=== PATIENT | female | born 1945 | race Caucasian/White ===

== ENCOUNTER → 2017-02-11 | Outpatient (CLI) | payer OTHER, MEDICARE | LOC: FIMAGING 09:21 | PROVIDERS: ATTEND Internal Medicine | DX: Z12.31 Encounter for screening mammogram for malignant neoplasm of breast (principal) | CPT/HCPCS: G0202 ==

== ENCOUNTER → 2017-04-23 | Outpatient (CLI) | payer OTHER, MEDICARE | LOC: FIMAGING 08:47 | PROVIDERS: ATTEND Internal Medicine | DX: Z13.820 Encounter for screening for osteoporosis (principal); M85.80 Other specified disorders of bone density and structure, unspecified site ==

== ENCOUNTER → 2017-11-11 | Outpatient (CLI) | payer OTHER, MEDICARE | LOC: FIMAGING 09:29 | PROVIDERS: ATTEND Internal Medicine | DX: G44.009 Cluster headache syndrome, unspecified, not intractable (principal) ==

== ENCOUNTER 2017-11-24 20:38 | Inpatient (IN) | payer OTHER, MEDICARE ==
--- NOTE | 2017-11-24 21:07 | CPEKG ---
Heart Rate: 94 RR Interval: 638 P-R Interval: 160 QRSD Interval: 92 QT Interval: 364 QTC Interval: 456 P [place]: 39 QRS [place]: 17 T Wave [place]: 39 EKG Severity - BORDERLINE ECG - EKG Impression: SINUS RHYTHM EKG Impression: BORDERLINE INFERIOR Q WAVES Electronically Signed By: Robbie De Guzman 24-Nov-2017 23:44:44
[2017-11-24] MEDS ORDERED: LORazepam 2 MG/ML INJ IVP ONE (21:13)
[2017-11-24] MEDS ORDERED: NS 500 ML IV ONE (21:13)
--- NOTE | 2017-11-24 21:13 | EDPHY ---
General - History Smoking Status: Former smoker Time Seen by Provider: 11/24/17 21:04 Narrative: CHIEF COMPLAINT: High blood pressure, dizziness HISTORY OF PRESENT ILLNESS: Patient presents with complaints of high blood pressure and feeling dizzy. Symptoms started earlier today. She noted blood pressures in the 180s systolic. She had no headache that she did feel dizzy and lightheaded. No chest pain. No shortness of breath. No neck pain, fever or stiffness. No chills. No cough, shortness of breath or wheezing. She has not been ill recently. She describes this as feeling "not right." The dizziness is primarily chronic. She has no unilateral complaints. No facial droop or slurred speech per spouse. No difficulty ambulating. She does report that she typically drinks alcohol daily but has not had any since yesterday. No other associated complaints or modifying factors REVIEW OF SYSTEMS: Ten systems reviewed and are negative unless otherwise noted in the HPI PCP: Dr. Garrett SPECIALISTS: None PAST MEDICAL HISTORY: Alcoholism, hypertension, chronic dizziness, colon cancer PAST SURGICAL HISTORY: Partial colectomy with reanastomosis SOCIAL HISTORY: Nonsmoker. Daily ingestion of 5-7 glasses of wine. Lives independently with her spouse FAMILY HISTORY: Noncontributory EXAMINATION General Appearance: Alert, no distress. Well-developed well-nourished. Head: normocephalic, atraumatic Eyes: Pupils equal and round, no conjunctival pallor or injection ENT, Mouth: Mucous membranes dry. Airway is widely patent Neck: Normal inspection, supple, non-tender Respiratory: Lungs are clear to auscultation. No wheezing rhonchi or crackles Cardiovascular: Regular rate and rhythm. No murmur Gastrointestinal: Abdomen is soft and nontender Back: non-tender, no bony abnormalities Neurological: GCS 15.A&O, nonfocal, normal gait. Mild resting tremor. No pronator drift. Normal zpilcm-[id number]. Normal steady gait with no ataxia Skin: Warm and dry, no rash no petechiae or purpura Extremities: Nontender, no pedal edema Psychiatric: Mood and affect normal DIFFERENTIAL DIAGNOSES: Including but not limited to alcohol withdrawal, delirium tremens, dehydration, hypertensive urgency, hypertensive emergency MDM: 9:13 p.m. Hypertension without evidence of stroke, TIA or hypertensive emergency. No headache. Her vital signs are otherwise stable. Suspect that there is a component of alcohol withdrawal or dehydration as she has had no alcohol today. She does report frequent intake of alcohol. I do not appreciate any evidence of delirium tremens or encephalopathy at this time. I will discuss with Dr. De Guzman 10:20 p.m. Patient re-evaluated. She is feeling significantly better with her IV Ativan and IV fluid. Her vital signs have normalized. She does have an anion gap of 20, suggesting alcoholic ketoacidosis. In addition she does have hypomagnesemia 1.2. Her vital signs are within normal limits otherwise. She does not exhibit any evidence of delirium tremens or encephalopathy. But I do feel she warrants admission the hospital for further resuscitation, Care repletion. The patient is agreeable with this as is her spouse at bedside. 10:25 p.m. Case discussed with hospitalist Dr. [place]. He will admit the patient to his service. Admitted stable condition. SUPERVISION: Patient was evaluated and examined in conjunction with my secondary supervising physician as documented. We have both examined the patient. (Frank Turner) - Objective Vital Signs: Initial Vital Signs Temperature (C) 36.8 C 11/24/17 20:39 Heart Rate 109 H 11/24/17 20:39 Respiratory Rate 18 11/24/17 20:39 Blood Pressure 197/102 H 11/24/17 20:39 O2 Sat (%) 96 11/24/17 20:39 O2 Delivery Mode Room Air Allergies/Adverse Reactions: No Known Allergies Allergy (Unverified 04/08/13 08:47) Home Medications: Medication Instructions Recorded Benazepril/Hydrochlorothiazide 1 each PO DAILY 04/08/13 [Benazepril-Hctz 20-25 mg Tab] Cholecalciferol Vit D3 [Vitamin D3 1,000 units PO DAILY 04/08/13 (*)] Aspirin [Aspirin 81mg (*)] 81 mg PO DAILY 07/27/13 Multivitamins [Multivitamin (*)] 1 each PO DAILY 11/25/17 Liberty-3 Fatty Acids [Fish Oil 1000 1,000 mg PO DAILY 11/25/17 mg (*)] amLODIPine BESYLATE [Norvasc 5 mg 5 mg PO DAILY 11/25/17 (*)] Acetaminophen [Tylenol 325mg (*)] 650 mg PO Q4HRS PRN tab 11/26/17 amLODIPine BESYLATE [Norvasc 2.5 2.5 mg PO DAILY #15 tab 11/26/17 mg (*)] Laboratory Results: Laboratory Results 11/24/17 21:18 11/24/17 21:18 Medications Given: Discontinued Medications Acetaminophen (Tylenol) 650 mg PO Q4HRS PRN PRN Reason: Pain, Mild/Fever, Can Take PO Stop: 05/23/18 23:20 Last Admin: 11/26/17 08:06 Dose: 650 mg Amlodipine Besylate (Norvasc) 5 mg PO DAILY LUNA Stop: 05/24/18 08:59 Last Admin: 11/25/17 09:24 Dose: 5 mg Amlodipine Besylate (Norvasc) 5 mg PO ONCE ONE Stop: 11/25/17 12:01 Last Admin: 11/25/17 12:17 Dose: Not Given Amlodipine Besylate (Norvasc) 2.5 mg PO ONCE ONE Stop: 11/25/17 12:31 Last Admin: 11/25/17 13:08 Dose: 2.5 mg Amlodipine Besylate (Norvasc) 7.5 mg PO DAILY LUNA Stop: 05/24/18 08:59 Last Admin: 11/26/17 08:08 Dose: 7.5 mg Aspirin (Aspirin) 81 mg PO DAILY LUNA Stop: 05/24/18 08:59 Last Admin: 11/26/17 08:08 Dose: 81 mg Benazepril HCl (Lotensin) 20 mg PO DAILY LUNA Stop: 05/24/18 08:59 Last Admin: 11/26/17 08:07 Dose: 20 mg Cholecalciferol (Vitamin D) 1,000 units PO DAILY LUNA Stop: 05/24/18 08:59 Last Admin: 11/26/17 08:09 Dose: 1,000 units Enoxaparin Sodium (Lovenox) 40 mg SC DAILY LUNA Stop: 05/24/18 08:59 Last Admin: 11/26/17 08:09 Dose: 40 mg Folic Acid (Folic Acid) 1 mg PO DAILY LUNA Stop: 05/24/18 08:59 Last Admin: 11/26/17 08:08 Dose: 1 mg Gabapentin (Neurontin) 100 mg PO TID LUNA Stop: 05/24/18 15:59 Last Admin: 11/26/17 08:08 Dose: 100 mg Hydrochlorothiazide (Hydrochlorothiazide) 25 mg PO DAILY LUNA Stop: 05/24/18 08:59 Last Admin: 11/26/17 08:09 Dose: 25 mg Sodium Chloride (Ns) 500 mls @ 1,000 mls/hr IV EDNOW ONE PRN Reason: Protocol Stop: 11/24/17 21:42 Last Admin: 11/24/17 21:27 Dose: 500 mls Magnesium Sulfate (Magnesium Sulf 2 Gm (Premix)) 50 mls @ 50 mls/hr IV EDNOW ONE Stop: 11/24/17 23:19 Last Admin: 11/24/17 23:07 Dose: 50 mls Potassium Chloride/Sodium Chloride (Ns W/ 20 Kcl/L) 1,000 mls @ 100 mls/hr IV CONT LUNA Stop: 05/23/18 23:29 Last Admin: 11/24/17 23:59 Dose: 1,000 mls Lorazepam (Ativan Injection) 0.5 mg IVP EDNOW ONE Stop: 11/24/17 21:14 Last Admin: 11/24/17 21:27 Dose: 0.5 mg Multivitamins (Tab-A-Singh) 1 each PO DAILY LUNA Stop: 05/24/18 08:59 Last Admin: 11/26/17 08:07 Dose: 1 each Lhmza-5-Untg Ethyl Esters (Fish Oil) 1,000 mg PO DAILY LUNA Stop: 05/24/18 08:59 Last Admin: 11/26/17 08:07 Dose: 1,000 mg Potassium Chloride (Klor-Con) 10 - 40 meq PO ONCE ONE PRN Reason: Protocol Stop: 11/25/17 08:52 Last Admin: 11/25/17 09:23 Dose: 30 meq Potassium Chloride (Klor-Con) 10 - 40 meq PO ONCE ONE PRN Reason: Protocol Stop: 11/25/17 20:15 Last Admin: 11/25/17 21:11 Dose: 10 meq Potassium Chloride (Klor-Con) 10 - 40 meq PO ONCE ONE PRN Reason: Protocol Stop: 11/26/17 08:01 Last Admin: 11/26/17 08:06 Dose: 10 meq Departure - Departure Disposition: [facility] Acute Clinical Impression: Alcoholic ketoacidosis, Hypomagnesemia Alcohol dependence Qualifiers: Substance use status: uncomplicated Qualified Code(s): F10.20 - Alcohol dependence, uncomplicated Condition: Good
[2017-11-24] MEDS ORDERED: LORazepam 2 MG/ML INJ IVP PRN ×2 (21:28→23:23)
[2017-11-24] MEDS ORDERED: LORazepam 1 MG TAB PO PRN (21:28)
[2017-11-24 21:42] LABS: PLATELET COUNT 203 10^3/uL (150-400)
[2017-11-24 21:55] LABS: PROTIME(PATIENT) 13.4 SEC (12.0-15.0)
[2017-11-24] MEDS ORDERED: MAGNESIUM SULF 2 GM/WATER 50 ML IV ONE (22:20)
[2017-11-24] MEDS ORDERED: ONDANSETRON 4 MG/2 ML VIAL IVP PRN (23:21)
[2017-11-24] MEDS ORDERED: ONDANSETRON DISINTEGRATING 4 MG TAB PO PRN (23:21)
[2017-11-24] MEDS ORDERED: ACETAMINOPHEN 325 MG TAB PO PRN (23:21)
[2017-11-24] MEDS ORDERED: FLUMAZENIL 0.5 MG/5 ML MDV IVP PRN (23:23)
[2017-11-24] MEDS ORDERED: NS W/ 20 KCl/L 1,000 ML IV SCH (23:30)
--- NOTE | 2017-11-25 03:21 | PDGENHP ---
History and Physical - Chief Complaint High blood pressure - History of Present Illness 72 yo F w/ hx of HTN presents with malaise and high blood pressure. Patient noted high BP at home and called PCP, who advised her to come to the ED. In addition, she states she has been feeling "off" for a couple of days. She has been compliant w/ her home benazepril and HCTZ for HTN. She admits to issues with excessive ETOH intake for many years. She usually drinks 6-7 glasses of white wine daily, with her last drink being 2 days ago. History Information - Allergies/Home Medication List Allergies/Adverse Reactions: No Known Allergies Allergy (Unverified 04/08/13 08:47) Home Medications: Benazepril/Hydrochlorothiazide [Benazepril-Hctz 20-25 mg Tab] 1 each PO DAILY [Last Taken 07/26/13] Cholecalciferol Vit D3 [Vitamin D3 1000 units (OTC)] 1,000 units PO DAILY [Last Taken 07/26/13] Multivitamins [Tab-A-Singh] 1 each PO DAILY 04/08/13 [Last Taken 07/26/13] Rosuvastatin Calcium [Crestor 40mg (RX)] 40 mg PO DAILY 04/08/13 [Last Taken 01/01] Ubidecarenone [Coenzyme Q10] 100 mg PO DAILY 04/08/13 [Last Taken 07/26/13] Aspirin [Aspirin 81mg (OTC)] 81 mg PO DAILY 07/27/13 [Last Taken 07/21/13] Docusate Sodium [Colace 100 MG (OTC)] 100 mg PO BID PRN 07/27/13 [Last Taken 01/01] Herbals/Supplements -Info Only 1 each PO AD 07/27/13 [Last Taken 07/26/13] I have personally reviewed and updated: family history, medical history - Past Medical History cancer, hypertension - Surgical History Additional surgical history: Colectomy w/ ostomy and subsequent takedown - Family History Positive for: stroke Additional family history: Parkinson's - Social History Smoking Status: Former smoker Review of Systems Review of Systems: ROS: 10pt was reviewed & negative except for what was stated in HPI & below Physical Exam Physical Exam: Temp Pulse Resp BP Pulse Ox 36.8 C 81 18 142/93 H 95 11/24/17 20:39 11/24/17 23:00 11/24/17 23:00 11/25/17 00:53 11/24/17 23:00 Constitutional: no apparent distress, not in pain Eyes: PERRL, EOMI Ears, Nose, Mouth, Throat: moist mucous membranes, no oral mucosal ulcers Cardiovascular: regular rate and rhythym, systolic murmur Respiratory: no respiratory distress, clear to auscultation Gastrointestinal: normoactive bowel sounds Skin: warm, normal color Musculoskeletal: full muscle strength, no muscle tenderness Neurologic: AAOx3, CN II-XII Intact, other (+noemy fasciculations) Psychiatric: interacting appropriately, not anxious Lab Data & Imaging Review 11/24/17 21:18 11/24/17 21:18 WBC 6.22 10^3/uL (3.80-9.50) 11/24/17 21:18 RBC 4.37 10^6/uL (4.18-5.33) 11/24/17 21:18 Hgb 13.9 g/dL (12.6-16.3) 11/24/17 21:18 POC Hgb 14.6 gm/dL (12.6-16.3) 11/24/17 21:24 Hct 39.8 % (38.0-47.0) 11/24/17 21:18 POC Hct 43 % (38-47) 11/24/17 21:24 MCV 91.1 fL (81.5-99.8) 11/24/17 21:18 MCH 31.8 pg (27.9-34.1) 11/24/17 21:18 MCHC 34.9 g/dL (32.4-36.7) 11/24/17 21:18 RDW 13.0 % (11.5-15.2) 11/24/17 21:18 Plt Count 203 10^3/uL (150-400) 11/24/17 21:18 MPV 9.0 fL (8.7-11.7) 11/24/17 21:18 Neut % (Auto) 69.7 % (39.3-74.2) 11/24/17 21:18 Lymph % (Auto) 19.9 % (15.0-45.0) 11/24/17 21:18 Henry % (Auto) 9.6 % (4.5-13.0) 11/24/17 21:18 Eos % (Auto) 0.3 % (0.6-7.6) L 11/24/17 21:18 Baso % (Auto) 0.2 % (0.3-1.7) L 11/24/17 21:18 Nucleat RBC Rel Count 0.0 % (0.0-0.2) 11/24/17 21:18 Absolute Neuts (auto) 4.33 10^3/uL (1.70-6.50) 11/24/17 21: Absolute Lymphs (auto) 1.24 10^3/uL (1.00-3.00) 11/24/17 21: Absolute Monos (auto) 0.60 10^3/uL (0.30-0.80) 11/24/17 21:18 Absolute Eos (auto) 0.02 10^3/uL (0.03-0.40) L 11/24/17 21:18 Absolute Basos (auto) 0.01 10^3/uL (0.02-0.10) L 11/24/17 21:18 Absolute Nucleated RBC 0.00 10^3/uL (0-0.01) 11/24/17 21: Immature Gran % 0.3 % (0.0-1.1) 11/24/17 21: Immature Gran # 0.02 10^3/uL (0.00-0.10) 11/24/17 21:18 PT 13.4 SEC (12.0-15.0) 11/24/17 21:18 INR 1.00 (0.83-1.16) 11/24/17 21:18 APTT 25.8 SEC (23.0-38.0) 11/24/17 21:18 POC Sodium 136 mEq/L (135-145) 11/24/17 21:24 Sodium 134 mEq/L (135-145) L 11/24/17 21:18 POC Potassium 3.4 mEq/L (3.3-5.0) 11/24/17 21:24 Potassium 3.8 mEq/L (3.5-5.2) 11/24/17 21:18 POC Chloride 91 mEq/L (97-110) L 11/24/17 21:24 Chloride 93 mEq/L (97-110) L 11/24/17 21:18 Carbon Dioxide 21 mEq/l (22-31) L 11/24/17 21:18 Anion Gap 20 mEq/L (8-16) H 11/24/17 21:18 POC BUN 17 mg/dL (7-23) 11/24/17 21:24 BUN 9 mg/dL (7-23) 11/24/17 21:18 Creatinine 0.6 mg/dL (0.6-1.0) 11/24/17 21:18 POC Creatinine 0.5 mg/dL (0.6-1.0) L 11/24/17 21:24 Estimated GFR > 60 11/24/17 21:18 Glucose 130 mg/dL (70-100) H 11/24/17 21:18 POC Glucose 137 mg/dL (70-100) H 11/24/17 21:24 Calcium 9.4 mg/dL (8.5-10.4) 11/24/17 21:18 Magnesium 1.2 mg/dL (1.6-2.3) L 11/24/17 21:18 Total Bilirubin 1.4 mg/dL (0.1-1.4) 11/24/17 21:18 Conjugated Bilirubin 0.5 mg/dL (0.0-0.5) 11/24/17 21:18 Unconjugated Bilirubin 0.9 mg/dL (0.0-1.1) 11/24/17 21:18 AST 23 IU/L (14-46) 11/24/17 21:18 ALT 29 IU/L (9-52) 11/24/17 21:18 Alkaline Phosphatase 60 IU/L (38-126) 11/24/17 21:18 Troponin I < 0.012 ng/mL (0.000-0.034) 11/24/17 21:18 Total Protein 7.2 g/dL (6.3-8.2) 11/24/17 21:18 Albumin 4.4 g/dL (3.5-5.0) 11/24/17 21:18 Lipase 125 IU/L (23-300) 11/24/17 21:18 Ethyl Alcohol < 10 mg/dL (0-10) 11/24/17 21:18 Assessment & Plan Assessment: 72 yo F w/ HTN presents with uncontrolled HTN and malaise from likely alcoholic ketoacidosis and mild ETOH w/d. Plan: 1. Uncontrolled HTN - I suspect her BP was elevated due to mild ETOH w/d with possible contribution from dehydration. Her BP improved in the ED with only fluids and a small dose of Ativan. - Admit for observation - Continue home BP medications 2. ETOH abuse w/ possible withdrawal - Patient admits to drinking 6-7 glasses of white wine daily. Her last drink was 2 days prior to admission. - [facility] protocol - Thiamine, MVI, folate 3. AGMA - I suspect alcoholic ketoacidosis with possible contribution from dehydration. - Fluid resuscitation - Recheck BMP in AM 4. Hypokalemia, hypomagnesemia - Most likely a reflection of significant ETOH abuse. - Replete and recheck in AM 5. Hx of colon CA - S/p colectomy w/ ostomy and subsequent takedown. Diet - Regular Code - Full Ppx - LMWH Dispo - Admit under observation status
[2017-11-25 05:53] LABS: PLATELET COUNT 165 10^3/uL (150-400)
[2017-11-25] MEDS ORDERED: PROTOCOL POTASSIUM 1 DOSE MISC PRN (08:01)
[2017-11-25] MEDS ORDERED: POTASSIUM CL 10 MEQ TAB PO ONE ×2 (08:51→20:14)
[2017-11-25] MEDS ORDERED: NON-FORMULARY NEW DRUG (Benazepril/Hydrochlorothiazide [Benazepril-Hctz 20-25 Mg Tab] 1 EA PO SCH (09:00)
[2017-11-25] MEDS ORDERED: amLODIPine BESYLATE 5 MG TAB PO SCH (09:00)
[2017-11-25] MEDS ORDERED: MULTIVITAMINS 1 EACH TAB PO SCH (09:00)
[2017-11-25] MEDS: ENOXAPARIN 40 MG/0.4 ML SYR SC SCH (09:23)
[2017-11-25] MEDS: OMEGA-3 FATTY ACIDS 1,000 MG CAP PO SCH (09:24)
[2017-11-25] MEDS: BENAZEPRIL HCL 20 MG TAB PO SCH (09:24)
[2017-11-25] MEDS: HYDROCHLOROTHIAZIDE 25 MG TAB PO SCH (09:24)
[2017-11-25] MEDS: FOLIC ACID 1 MG TAB PO SCH (09:24)
[2017-11-25] MEDS: CHOLECALCIFEROL VIT D3 1,000 UNITS TAB PO SCH (09:24)
[2017-11-25] MEDS: ASPIRIN 81 MG CHEWABLE TAB PO SCH (09:24)
[2017-11-25] MEDS: MULTIVITAMINS 1 EACH TAB PO SCH (09:25)
--- NOTE | 2017-11-25 11:13 | HOSPPROG ---
Hospitalist Progress Note Assessment/Plan: Norma Kathleen is a 72 y/o female with hypertension who called her PCP because she had been feeling off for several days. She has been compliant with her blood pressure medications, but noted her bp was high at home. She admits to excessive alcohol use/ upto 6-7 glasses of white wine a day. *Uncontrolled HTN -blood pressure remains elevated -increase Norvasc dose -suspect this may be from alcohol withdrawal *alcohol use and concern for withdrawal -on [facility] protocol -has gone to in the past -very motivated to return to to get other support *stressors -recently loss a friend, her dog, her son is getting -feels she has support from her *Anion gap metabolic acidosis -resolved w hydration *hypomagnesium, hypokalemia -protocol *hx of colon ca -s/p colectomy with ostomy and subsequent takedown *Plan: Norma's bp is still quite elevated, somewhat tremulous during my interview. Will add prn medications for her blood pressure, increase norvasc dose and monitor overnight for close watching. This will make her IP status. Subjective: Norma is very concerned and anxious about her blood pressure, feels unsteady. Objective: Vital Signs Temp Pulse Resp BP Pulse Ox 36.8 C 90 16 171/99 H 94 11/25/17 09:22 11/25/17 09:22 11/25/17 09:22 11/25/17 09:22 11/25/17 09:22 Laboratory Results 11/25/17 05:05 11/25/17 05:05 11/24/17 11/25/17 11/26/17 05:59 05:59 05:59 Intake Total 1570 Balance 1570 PT 13.4 SEC (12.0-15.0) 11/24/17 21:18 INR 1.00 (0.83-1.16) 11/24/17 21:18 - Physical Exam Constitutional: appears nourished Eyes: PERRL Ears, Nose, Mouth, Throat: hearing normal Cardiovascular: regular rate and rhythym, tachycardia Respiratory: no respiratory distress Gastrointestinal: normoactive bowel sounds Skin: warm Musculoskeletal: full muscle strength Neurologic: AAOx3 Psychiatric: anxious ICD10 Worksheet Patient Problems: Problems Problem Status Onset Alcohol dependence Acute Alcoholic ketoacidosis Acute Hypomagnesemia Acute Colostomy in place Acute
--- NOTE | 2017-11-25 11:27 | ASMTCAGE ---
CAGE Do you feel you ought to Answers: Yes cut down on your drinking or drug use? Do people annoy you by Answers: No criticizing your drinking or drug use? Do you feel guilty about Answers: No your drinking or drug use? Do you drink or use drugs Answers: No first thing in the morning ([employer])? Date Signed: 11/25/2017 11:27 AM Electronically Signed By:JOHANA Moran
--- NOTE | 2017-11-25 11:30 | ASMTCASEMG ---
Living Arrangements What is your living Answers: With Spouse arrangement? Who do you live with? Type Of Residence What kind of residence do Answers: House you live in? Discharge Plan Comments Coordination Status Comments Notes: CM spoke w/ HOWIE Ogden regarding d/c POC. CM met w/ pt for dispo planning. CM completed the CAGE. CM and pt discussed her ETOH use. Pt reports that she her is supportive and has supports in the community. Pt reports that she uses AA. CM provided pt w/ educational resources on ETOH and the effects it has on the body. Pt will most likely d/c independent. Pt is not interested in any services at this time. CM available for changes. Plan: Independent Date Signed: 11/25/2017 11:30 AM Electronically Signed By:JOHANA Moran
[2017-11-25] MEDS ORDERED: hydrALAZINE 10 MG TAB PO PRN (13:45)
--- NOTE | 2017-11-25 16:00 | PDMN ---
Medical Necessity Medical necessity: change to IP; los>2mn for uncontrolled htn, etoh withdrawal w / tremors; requires CIWA, BP monitoring and med adjustment; per order and progress note 11/25/17
[2017-11-25] MEDS: GABAPENTIN 100 MG CAP PO SCH ×2 (17:13→21:11)
[2017-11-26] MEDS ORDERED: POTASSIUM CL 10 MEQ TAB PO ONE (08:00)
[2017-11-26] MEDS: MULTIVITAMINS 1 EACH TAB PO SCH (08:07)
[2017-11-26] MEDS: OMEGA-3 FATTY ACIDS 1,000 MG CAP PO SCH (08:07)
[2017-11-26] MEDS: BENAZEPRIL HCL 20 MG TAB PO SCH (08:07)
[2017-11-26] MEDS: GABAPENTIN 100 MG CAP PO SCH (08:08)
[2017-11-26] MEDS: FOLIC ACID 1 MG TAB PO SCH (08:08)
[2017-11-26] MEDS: ASPIRIN 81 MG CHEWABLE TAB PO SCH (08:08)
[2017-11-26] MEDS: CHOLECALCIFEROL VIT D3 1,000 UNITS TAB PO SCH (08:09)
[2017-11-26] MEDS: ENOXAPARIN 40 MG/0.4 ML SYR SC SCH (08:09)
[2017-11-26] MEDS: HYDROCHLOROTHIAZIDE 25 MG TAB PO SCH (08:09)
[2017-11-26] MEDS ORDERED: amLODIPine BESYLATE 5 MG TAB PO SCH (09:00)
--- NOTE | 2017-11-26 09:23 | HOSPPROG ---
Hospitalist Progress Note Assessment/Plan: Norma Kathleen is a 72 y/o female with hypertension who called her PCP because she had been feeling off for several days. She has been compliant with her blood pressure medications, but noted her bp was high at home. She admits to excessive alcohol use/ upto 6-7 glasses of white wine a day. *Uncontrolled HTN -blood pressure remains elevated but improved -increase Norvasc dose -suspect this may be from alcohol withdrawal *alcohol use and concern for withdrawal -on [facility] protocol -has gone to AA in the past -very motivated to return to AA to get other support *stressors -recently loss a friend, her dog, her son is getting -feels she has support from her *Anion gap metabolic acidosis -resolved w hydration *hypomagnesium, hypokalemia -protocol *hx of colon ca -s/p colectomy with ostomy and subsequent takedown *Plan: dc home if lightheadedness improves, will check a CPK, she has been having some muscle, joint aches. CM to see prior to dc. To see Dr Garrett in the next 2 weeks. Subjective: Norma is feeling a bit tired, has some joint pain that has been off and on for several weeks. Objective: Vital Signs Temp Pulse Resp BP Pulse Ox 37.0 C 93 16 151/97 H 95 11/26/17 07:57 11/26/17 07:57 11/26/17 07:57 11/26/17 08:09 11/26/17 07:57 Laboratory Results 11/25/17 05:05 11/26/17 05:39 11/25/17 11/26/17 11/27/17 05:59 05:59 05:59 Intake Total 1570 800 Balance 1570 800 PT 13.4 SEC (12.0-15.0) 11/24/17 21:18 INR 1.00 (0.83-1.16) 11/24/17 21:18 - Physical Exam Constitutional: appears nourished, not in pain Eyes: PERRL Ears, Nose, Mouth, Throat: hearing normal Cardiovascular: regular rate and rhythym Respiratory: no respiratory distress Gastrointestinal: normoactive bowel sounds Skin: warm Musculoskeletal: muscular tenderness (right elbow area) Neurologic: AAOx3 Psychiatric: interacting appropriately ICD10 Worksheet Patient Problems: Problems Problem Status Onset Alcohol dependence Acute Alcoholic ketoacidosis Acute Hypomagnesemia Acute Colostomy in place Acute
[2017-11-26] MEDS ORDERED: IBUPROFEN 200 MG TAB PO PRN (11:07)
[2017-11-26 11:27] VITALS: BP 142/79
--- NOTE | 2017-11-26 16:19 | GDS ---
[f rep st] DISCHARGE SUMMARY DISCHARGE DIAGNOSES: 1. Uncontrolled hypertension. 2. Alcohol use and concern for withdrawal. 3. Stressors. 4. Anion gap metabolic acidosis. 5. Electrolyte abnormalities. 6. History of colon cancer, status post colectomy with ostomy and subsequent takedown. HISTORY: Briefly, the patient is a 72-year-old female with hypertension, who called her primary care provider because she had been feeling off for several days. She said she had been compliant with he r blood pressure medications, but noted her blood pressure is extremely high. She also admits to exc essive alcohol use, up to 6-7 glasses of wine a day. She was discharged today, still had some feelin g of being lightheaded and some muscle pain. A CPK was checked, which was normal. She wanted to go home and further followup with Dr. Garrett in the outpatient setting. HOSPITAL COURSE: 1. Uncontrolled hypertension. Her blood pressure remained elevated but improved. Increased her Nor vasc by 2.5 mg daily. Will have her follow up with Dr. Garrett. It also could be secondary to with drawing from alcohol. 2. Alcohol use and concern withdrawal. She has gone to in the past, and she was very motivated t o return there to get support. Also, Case Management talked to her about other supportive measures. 3. Stressors. She recently lost a friend 6 months ago, her dog , and her son is getting . Also, her got in a car accident recently. She feels good support at home and also gets gr eat support from her friends who have been at . 4. Anion gap metabolic acidosis, resolved. 5. Electrolyte abnormalities, on the protocol. 6. History of colon cancer. She is status post colectomy with ostomy and subsequent takedown. DISCHARGE CONDITION: Stable. Blood pressure is 151/97, heart rate of 93, O2 sats on room air 95%. Respiratory rate is 16. Temperature is 37 degrees Celsius. DISCHARGE MEDICATIONS: Please see the EMR. DISCHARGE INSTRUCTIONS: 1. To follow up with Dr. Garrett next week. 2. If she develops uncontrolled hypertension, to return to the ER. 3. Recommended she stop all alcohol use and let her friends and family know that she is trying to ab stain from alcohol and not offer her wine at dinner or any other social situations. /[id number]/MODL
[2017-11-27] MEDS ORDERED: THIAMINE HCL 100 MG TAB PO SCH (23:23)
== END 2017-11-26 14:09 | disposition home or self-care (01) | DRG 305 ==
LOC: OBSVTOIN 22:25 → F3E 23:36
PROVIDERS: ADMIT Student in an Organized Health Care Education/Training Program; ATTEND Student in an Organized Health Care Education/Training Program
DX: I10 Essential (primary) hypertension (principal); F10.99 Alcohol use, unspecified with unspecified alcohol-induced disorder; E87.2 Acidosis; E87.6 Hypokalemia; E83.42 Hypomagnesemia; Z85.038 Personal history of other malignant neoplasm of large intestine; Z87.891 Personal history of nicotine dependence; Z63.8 Other specified problems related to primary support group
CPT/HCPCS: 82947-QW; 96374; G0378; G0480; J1650; J2060; J3475